=== PATIENT | male | born 2000 | race Caucasian/White ===

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

== ENCOUNTER 2020-12-11 20:43 | Emergency (ER) | payer MEDICAID ==
[~2020-12-11] VITALS: Ht 180.3 cm; Wt 77.3 kg
[2020-12-11 20:46] VITALS: BP 143/91; Ht 180.3 cm; Wt 77.3 kg
== END 2020-12-11 21:21 | disposition home or self-care (01) ==
LOC: D.ER 20:43
DX: T20.20XA Burn of second degree of head, face, and neck, unspecified site, initial encounter (principal); T22.211A Burn of second degree of right forearm, initial encounter; X08.8XXA Exposure to other specified smoke, fire and flames, initial encounter